=== PATIENT | female | born 1980 ===

== ENCOUNTER 2018-11-02 20:05 | Inpatient (IN) ==
[2018-11-02 21:02] LABS: Basophils % 0.6 % (0.0-0.8); Eosinophils # 0.1 10*3/uL (0.0-0.87); Eosinophils % 2.1 % (0.00-10.9); Hematocrit 30.9 VOL% (35.7-47.0); Hemoglobin 9.7 GM/DL (12.0-16.0); Immature Granulocytes % 0.6 %; Immature Granulocytes Absolute 0.04 #; Lymphocytes # 1.7 10*3/uL (1.4-4.0); Lymphocytes % 25.6 % (21.3-54.2); Mean Corpuscular HGB Conc 31.4 GM/DL (32-36); Mean Corpuscular Hemoglobin 26 PG (27-34); Mean Corpuscular Volume 83.5 FL (87-102); Mean Platelet Volume 11.3 FL (9.6-12.0); Monocytes # 0.8 10*3/uL (0.11-0.8); Monocytes % 11.7 % (1.7-12.7); NRBC # 0.02 10*3/uL; Neutrophils % 59.4 % (38.7-73.9); Platelet Count 186 T/CUMM (130-400); White Blood Count 6.7 T/CUMM (4-12)
[2018-11-02 21:03] LABS: Apearance,Urine CLEAR (Clear); Bilirubin,Urine Negative (Negative); Blood, Urine Negative (Negative); Glucose,Urine (UA) Negative (Negative); Ketones,Urine Negative (Negative); Nitrite,Urine Negative (Negative); Protein,Urine Negative; RBC,Urine <1 /HPF (0-4); Squamous Epithelial Cell,Urine Occasional /HPF (0-10); Urine Color Straw (Yellow); Urine Specific Gravity 1.005 (1.001-1.035); Urine Urobilinogen < 2.0 EU/DL (0.2-1.0); WBC,Urine <1 /HPF (0-6)
[2018-11-02 21:11] LABS: INR 0.9; PT Patient Result 9.5 SECS; Partial Thromboplastin Time 24.7 SECS (0-40)
[2018-11-02 21:22] LABS: Alanine Aminotransferase < 9 U/L (13-56); Albumin 2.1 G/DL (3.4-5.0); Alkaline Phosphatase 160 U/L (45-117); Aspartate Amino Transferase 10 U/L (0-37); Bilirubin,Direct < 0.100 MG/DL (0.0-0.20); Blood Urea Nitrogen 8 MG/DL (7-18); Calcium 8.4 MG/DL (8.5-10.1); Glucose 113 MG/DL (74-106); Osmolality,Calculated 275.5 MOS/KG (273-304); Potassium 3.8 MMOL/L (3.5-5.1); Sodium 139 MMOL/L (136-145); Total Protein 6.1 G/DL (6.4-8.3); Uric Acid 4.6 MG/DL (2.6-6.0)
[2018-11-03] MEDS ORDERED: GLUCAGON 1 MG VIAL IM PRN (07:34)
[2018-11-03] MEDS ORDERED: DEXTROSE 50% 25 GM/50 ML VIAL IV PRN (07:34)
[2018-11-03] MEDS: BETAMETH SODIUM PHOS/ACETATE 30 MG/5 ML VIAL IM SCH (08:35)
[2018-11-03] MEDS: INSULIN ASPART PROTAMINE/ASPART 70/30 100 UNIT/ML SUBCUT SCH ×3 (08:35→16:26)
[2018-11-03] MEDS: INSULIN GLARGINE 100 UNIT/ML SUBCUT SCH (20:09)
[2018-11-04 07:09] LABS: Basophils % 0.1 % (0.0-0.8); Eosinophils # 0.1 10*3/uL (0.0-0.87); Eosinophils % 0.6 % (0.00-10.9); Hematocrit 30.1 VOL% (35.7-47.0); Hemoglobin 9.6 GM/DL (12.0-16.0); Immature Granulocytes % 1.3 %; Immature Granulocytes Absolute 0.11 #; Lymphocytes # 1.7 10*3/uL (1.4-4.0); Lymphocytes % 20.1 % (21.3-54.2); Mean Corpuscular HGB Conc 31.9 GM/DL (32-36); Mean Corpuscular Hemoglobin 27 PG (27-34); Mean Corpuscular Volume 83.6 FL (87-102); Mean Platelet Volume 11.9 FL (9.6-12.0); Monocytes # 0.7 10*3/uL (0.11-0.8); Monocytes % 8.7 % (1.7-12.7); NRBC # 0.03 10*3/uL; Neutrophils # 5.8 10*3/uL (1.4-7.4); Neutrophils % 69.2 % (38.7-73.9); Platelet Count 187 T/CUMM (130-400); Red Cell Distribution Width 13.1 % (9.3-17.3); White Blood Count 8.3 T/CUMM (4-12)
[2018-11-04 07:22] LABS: INR 0.9; PT Patient Result 9.5 SECS; Partial Thromboplastin Time 24.6 SECS (0-40)
[2018-11-04 07:29] LABS: Alanine Aminotransferase < 9 U/L (13-56); Albumin 2.2 G/DL (3.4-5.0); Alkaline Phosphatase 153 U/L (45-117); Aspartate Amino Transferase 11 U/L (0-37); Blood Urea Nitrogen 9 MG/DL (7-18); Calcium 8.4 MG/DL (8.5-10.1); Glucose 117 MG/DL (74-106); Osmolality,Calculated 278.4 MOS/KG (273-304); Potassium 3.7 MMOL/L (3.5-5.1); Sodium 140 MMOL/L (136-145); Total Protein 6.2 G/DL (6.4-8.3)
[2018-11-04 07:37] LABS: Albumin 2.2 G/DL (3.4-5.0); Bilirubin,Total 0.4 MG/DL (0.2-1.0); Calcium 8.2 MG/DL (8.5-10.1); Osmolality,Calculated 278.4 MOS/KG (273-304); Potassium 3.7 MMOL/L (3.5-5.1); Total Protein 6.2 G/DL (6.4-8.3)
[2018-11-04] MEDS: INSULIN ASPART PROTAMINE/ASPART 70/30 100 UNIT/ML SUBCUT SCH ×3 (08:00→16:47)
[2018-11-04] MEDS: BETAMETH SODIUM PHOS/ACETATE 30 MG/5 ML VIAL IM SCH (08:22)
[2018-11-04] MEDS: LACTATED RINGERS 1,000 ML IV SCH ×2 (08:49→11:48)
[2018-11-04] MEDS ORDERED: ceFAZolin 3,000 MG in SYRINGE 1 EACH IV ONE (10:00)
[2018-11-04] MEDS ORDERED: CITRIC ACID/SODIUM CITRATE 30 ML UDCUP PO ONE (10:00)
[2018-11-04] MEDS ORDERED: FAMOTIDINE 20 MG/2 ML VIAL IV ONE (10:00)
[2018-11-04] MEDS ORDERED: OXYTOCIN/LR 30 UNIT/1,000 ML BAG IV ONE (11:00)
[2018-11-04] MEDS ORDERED: OXYTOCIN 10 UNIT/ML VIAL IM ONE (11:00)
[2018-11-04] MEDS ORDERED: ONDANSETRON 4 MG/2 ML VIAL ONE (11:17)
[2018-11-04] MEDS ORDERED: PHENYLEPHRINE 1 MG/10 ML SYRINGE IV ONE (11:17)
[2018-11-04] MEDS ORDERED: BUPIVACAINE SPINAL 0.75% 2 ML AMP SPINAL ONE (11:17)
[2018-11-04 13:01] LABS: Cord Arterial Blood HCO3 28.5 MMOL/L
[2018-11-04 13:04] LABS: Cord Venous Blood HCO3 24.8 MMOL/L; Cord Venous Blood PCO2 45.4 MMHG; Cord Venous Blood PO2 37.1 MMHG
[2018-11-04 13:11] LABS: Apearance,Urine CLEAR (Clear); Bilirubin,Urine Negative (Negative); Blood, Urine Negative (Negative); Glucose,Urine (UA) Negative (Negative); Ketones,Urine Negative (Negative); Nitrite,Urine Negative (Negative); Protein,Urine Negative; RBC,Urine <1 /HPF (0-4); Squamous Epithelial Cell,Urine Occasional /HPF (0-10); Urine Color Straw (Yellow); Urine Specific Gravity 1.008 (1.001-1.035); Urine Urobilinogen < 2.0 EU/DL (0.2-1.0); WBC,Urine <1 /HPF (0-6)
[2018-11-04] MEDS ORDERED: fentaNYL 100 MCG/2 ML VIAL ONE (13:34)
[2018-11-04] MEDS ORDERED: MORPHINE 10 MG/10 ML VIAL ONE (13:34)
[2018-11-04] MEDS ORDERED: ACETAMINOPHEN 325 MG TABLET PO PRN (13:54)
[2018-11-04] MEDS ORDERED: GLUCAGON 1 MG VIAL IM PRN ×2 (13:54→21:07)
[2018-11-04] MEDS ORDERED: OXYTOCIN/LR 20 UNIT/1,000 ML BAG IV ONE (13:54)
[2018-11-04] MEDS ORDERED: ONDANSETRON 4 MG/2 ML VIAL IV PRN (13:54)
[2018-11-04] MEDS ORDERED: RHO(D) IMMUNE GLOBULIN 300 MCG SYRINGE IM ONE (13:54)
[2018-11-04] MEDS ORDERED: DEXTROSE 50% 25 GM/50 ML VIAL IV PRN ×2 (13:54→21:07)
[2018-11-04] MEDS ORDERED: IBUPROFEN 800 MG TABLET PO PRN (13:54)
[2018-11-04] MEDS ORDERED: KETOROLAC 30 MG/1 ML VIAL IV SCH (14:00)
[2018-11-04] MEDS ORDERED: LACTATED RINGERS 1,000 ML IV SCH (14:00)
[2018-11-04] MEDS ORDERED: SODIUM CHLORIDE 0.9% 1,000 ML IV PRN (14:06)
[2018-11-04] MEDS ORDERED: ENOXAPARIN 40 MG/0.4 ML SYRINGE SUBCUT SCH (17:43)
[2018-11-04] MEDS ORDERED: ACETAMINOPHEN 500 MG TABLET PO PRN (19:00)
[2018-11-04] MEDS: KETOROLAC 30 MG/1 ML VIAL IV SCH (19:37)
[2018-11-04] MEDS: ceFAZolin 1,000 MG in SYRINGE 1 EACH IV SCH (19:43)
[2018-11-04] MEDS: ACETAMINOPHEN 500 MG TABLET PO SCH (19:43)
[2018-11-04] MEDS: DOCUSATE SODIUM 100 MG CAPSULE PO SCH (22:01)
[2018-11-04] MEDS: INSULIN GLARGINE 100 UNIT/ML SUBCUT SCH (22:01)
[2018-11-05] MEDS: KETOROLAC 30 MG/1 ML VIAL IV SCH ×2 (02:10→09:48)
[2018-11-05] MEDS: ACETAMINOPHEN 500 MG TABLET PO SCH ×2 (02:16→09:45)
[2018-11-05] MEDS: ceFAZolin 1,000 MG in SYRINGE 1 EACH IV SCH (03:54)
[2018-11-05 05:22] LABS: Basophils % 0.2 % (0.0-0.8); Eosinophils % 0.2 % (0.00-10.9); Hematocrit 29.6 VOL% (35.7-47.0); Hemoglobin 9.5 GM/DL (12.0-16.0); Immature Granulocytes % 0.9 %; Immature Granulocytes Absolute 0.11 #; Lymphocytes # 2.3 10*3/uL (1.4-4.0); Mean Corpuscular HGB Conc 32.1 GM/DL (32-36); Mean Corpuscular Hemoglobin 27 PG (27-34); Mean Corpuscular Volume 84.1 FL (87-102); Mean Platelet Volume 11.7 FL (9.6-12.0); Monocytes # 1.3 10*3/uL (0.11-0.8); Monocytes % 10.5 % (1.7-12.7); NRBC # 0.04 10*3/uL; Neutrophils # 8.5 10*3/uL (1.4-7.4); Neutrophils % 69.2 % (38.7-73.9); Platelet Count 173 T/CUMM (130-400); Red Blood Count 3.52 MC/CUMM (3.8-5.5); Red Cell Distribution Width 13.2 % (9.3-17.3); White Blood Count 12.3 T/CUMM (4-12)
[2018-11-05] MEDS ORDERED: INSULIN ASPART PROTAMINE/ASPART 70/30 100 UNIT/ML SUBCUT SCH (09:27)
[2018-11-05] MEDS ORDERED: ACETAMINOPHEN 500 MG TABLET PO SCH (09:30)
[2018-11-05] MEDS: MAGNESIUM HYDROXIDE SUSP 30 ML UDCUP PO PRN ×2 (09:45→21:42)
[2018-11-05] MEDS: DOCUSATE SODIUM 100 MG CAPSULE PO SCH ×2 (09:46→21:42)
[2018-11-05] MEDS: MULTIVITAMIN (PRENATAL) TABLET PO SCH (09:46)
[2018-11-05] MEDS: SIMETHICONE CHEW 80 MG TABLET PO PRN ×2 (09:46→21:42)
[2018-11-05] MEDS: METOCLOPRAMIDE 10 MG TABLET PO PRN ×2 (09:46→16:29)
[2018-11-05] MEDS: ENOXAPARIN 40 MG/0.4 ML SYRINGE SUBCUT SCH (09:47)
[2018-11-05] MEDS: FERROUS SULFATE 325 MG TABLET PO SCH ×2 (09:50→21:42)
[2018-11-05] MEDS: INSULIN ASPART PROTAMINE/ASPART 70/30 100 UNIT/ML SUBCUT SCH ×3 (09:51→18:21)
[2018-11-05] MEDS: FUROSEMIDE 40 MG/4 ML VIAL IV SCH ×2 (16:25→21:46)
[2018-11-05] MEDS: INSULIN GLARGINE 100 UNIT/ML SUBCUT SCH (21:15)
[2018-11-06] MEDS: FUROSEMIDE 40 MG/4 ML VIAL IV SCH (04:18)
[2018-11-06 05:34] LABS: Potassium 3.7 MMOL/L (3.5-5.1)
[2018-11-06] MEDS: MULTIVITAMIN (PRENATAL) TABLET PO SCH (09:17)
[2018-11-06] MEDS: MAGNESIUM HYDROXIDE SUSP 30 ML UDCUP PO PRN ×2 (09:17→20:15)
[2018-11-06] MEDS: DOCUSATE SODIUM 100 MG CAPSULE PO SCH ×2 (09:17→20:14)
[2018-11-06] MEDS: FERROUS SULFATE 325 MG TABLET PO SCH ×2 (09:17→20:15)
[2018-11-06] MEDS: SIMETHICONE CHEW 80 MG TABLET PO PRN ×2 (09:17→20:14)
[2018-11-06] MEDS: ENOXAPARIN 40 MG/0.4 ML SYRINGE SUBCUT SCH (09:18)
[2018-11-06] MEDS ORDERED: FUROSEMIDE 40 MG/4 ML VIAL IV SCH (11:00)
[2018-11-06] MEDS: INSULIN ASPART PROTAMINE/ASPART 70/30 100 UNIT/ML SUBCUT SCH ×2 (11:54→13:08)
[2018-11-06] MEDS: METOCLOPRAMIDE 10 MG TABLET PO PRN (20:14)
[2018-11-06] MEDS: INSULIN GLARGINE 100 UNIT/ML SUBCUT SCH (21:15)
[2018-11-07] MEDS: INSULIN ASPART PROTAMINE/ASPART 70/30 100 UNIT/ML SUBCUT SCH ×3 (08:31→17:00)
[2018-11-07] MEDS: FERROUS SULFATE 325 MG TABLET PO SCH ×2 (08:40→22:06)
[2018-11-07] MEDS: MULTIVITAMIN (PRENATAL) TABLET PO SCH (08:40)
[2018-11-07] MEDS: ENOXAPARIN 40 MG/0.4 ML SYRINGE SUBCUT SCH (08:40)
[2018-11-07] MEDS: DOCUSATE SODIUM 100 MG CAPSULE PO SCH ×2 (08:40→22:06)
[2018-11-07] MEDS: INSULIN GLARGINE 100 UNIT/ML SUBCUT SCH (20:00)
[2018-11-07] MEDS: SIMETHICONE CHEW 80 MG TABLET PO PRN (22:06)
[2018-11-07] MEDS: MAGNESIUM HYDROXIDE SUSP 30 ML UDCUP PO PRN (22:06)
[2018-11-08 07:18] VITALS: BP 142/74
[2018-11-08] MEDS: MULTIVITAMIN (PRENATAL) TABLET PO SCH (09:26)
[2018-11-08] MEDS: DOCUSATE SODIUM 100 MG CAPSULE PO SCH (09:26)
[2018-11-08] MEDS: FERROUS SULFATE 325 MG TABLET PO SCH (09:26)
[2018-11-08] MEDS: ENOXAPARIN 40 MG/0.4 ML SYRINGE SUBCUT SCH (09:26)
== END 2018-11-08 11:05 | disposition home or self-care (01) | DRG 540 ==
LOC: N.LDOUT 20:05 → N.LD 20:06 → N.OB 11-04 17:42
PROVIDERS: ADMIT Obstetrics & Gynecology; ATTEND Obstetrics & Gynecology
PROC: LDCSECT (ICD-10-PCS; 2018-11-04 12:00)